=== PATIENT | female | born 1965 | race Caucasian/White ===

== ENCOUNTER → 2021-11-12 | Outpatient (CLI) | payer BC, SELFPAY ==
[2021-11-12 12:21] LABS: T4 Free Direct 1.11 ng/dL (0.76-1.46); Thyroid Stim Hormone (TSH) 0.78 uIU/mL (0.358-3.74)
[2021-11-12 12:26] LABS: Vitamin B12 536 pg/mL (211-911); Vitamin D,25 Hydroxy 75.3 ng/mL
[2021-11-12 14:04] LABS: Hemoglobin A1c 5.6 % (3.8-5.6)
== END | disposition home or self-care (01) ==
LOC: BIMLAB 09:04
PROVIDERS: PCP Nurse Practitioner Family; Referring Provider Internal Medicine Endocrinology, Diabetes & Metabolism; Visit Provider Internal Medicine Endocrinology, Diabetes & Metabolism
DX: E03.8 Other specified hypothyroidism (principal); E06.3 Autoimmune thyroiditis; R73.09 Other abnormal glucose; E55.9 Vitamin D deficiency, unspecified
CPT/HCPCS: 36415; 82306; 82607; 83036; 84439; 84443

== ENCOUNTER → 2023-06-17 | Outpatient (CLI) | payer BC, SELFPAY ==
--- NOTE | 2023-06-17 18:02 | US_ITS ---
STUDY: THYROID ULTRASOUND REASON FOR EXAM: Female, 57 years old. TR nodules please TECHNIQUE: Ultrasound evaluation of the thyroid was performed with real-time and static ramirez-scale imaging. COMPARISON: None. FINDINGS: RIGHT LOBE: The right lobe of the thyroid gland measures 5.2 x 1.9 x 2.0 cm. There is a heterogeneous echotexture. There are 2 solid nodules in the right thyroid lobe. Nodule 1 measures 1.1 x 0.8 x 0.8 cm. This contains 2 small anechoic cysts. Nodule 2 measures 1.1 x 1.4 x 0.9 cm. It contains one small anechoic cyst. LEFT LOBE: The left lobe of the thyroid gland measures 4.4 x 1.8 x 1.6 cm. There is a heterogeneous echotexture. There is a solid nodule measuring 1.1 x 1.4 x 0.9 cm. It contains a small anechoic cyst. ISTHMUS: The isthmus measures 0.24 cm. US/Thyroid IMPRESSION: 1. 1.1 x 0.8 x 0.8 cm solid nodule with 2 small anechoic cysts in the right thyroid lobe. This nodule is mixed cystic and solid, hyperechoic or isoechoic, [id number], smoothly marginated and contains no echogenic foci. This nodule is not suspicious and no FNA or follow-up is necessary. 2. 1.1 x 1.4 x 0.9 cm solid nodule in the right thyroid lobe containing one small anechoic cyst. This nodule is not suspicious and no FNA or follow-up is necessary. 3. 1.1 x 1.4 x 0.9 cm solid nodule in the left thyroid lobe contains small anechoic cyst. This nodule is not suspicious and no FNA or follow-up is necessary. Electronically Signed: Sivakumar Purdy MD at 16:15 EST ,
--- OUTSIDE RECORDS SUMMARY | 2023-06-17 18:22 | XMS RPT_ITS | CCD ---
Author Name Unknown Address [address] [place] [address] Organization [facility] Care Team Providers Care Choir Leader Name Role Phone Unavailable Unavailable Unavailable SON HILARIO Unavailable Unavailabl Taty Hernandez Unavailable Stripe Marker, Donnamarie Unavailable Unavailable Stripe Marker Donnamarie Unavailable Unavailable Cristina Hilarioew A Unavailable Unavailable Son Hilario Unavailable Unavailable Taty Dubon Primary Care Provider Madelin Choe Unavailable Unavailable Unavailable Mago Soni Unavailable Unavailable Unavailable Taty Dubon MD Primary Care Provider TATY DUBON Admitting Unavailable TATY DUBON Attending Unavailable TATY DUBON Referring Unavailable KASSANDRA SWANN Primary Care Unavailable Taty Dubon MD Primary Care Provider [phone] Mago Soni NP Primary Care Provider Ms. Mago Soni Referring Unavailable Ms. Mago Soni Attending Unavailable Ms. Mago Soni Primary Care Unavailable MAGO SONI Primary Care Unavailable TATY DUBON Attending Unavailable Ms. Mago Soni Primary Care Unavailable Dr. Taty Dubon Attending Unavailab Ms. Mago Brunner Primary Care Unavailable Self, Referral Attending Unavailable Dr. Taty Dubon Referring Unavailab MAGO Brunner Attending Unavailable MAGO SONI Primary Care Unavailable Mago Soin CNP K Primary Care Provider BRANDON BANKS Attending Unavailable MAGO SONI Primary Care Unavailable MAGO SONI Primary Care Unavailable Zachariah LYMAN, Mago Fraire Primary Care Provider SARI DEL CASTILLO Referring Unavaila ble KARSON, SARI SHORE Admitting Unavaila ble ZACHARIAH, MAGO Fraire Primary Care Unavailable SARI DEL CASTILLO Attending Unavaila ble ZACHARIAH, MAGO Fraire Primary Care Unavailable SARI DEL CASTILLO Referring Unavaila ble SARI DEL CASTILLO Admitting Unavaila ble ZACHARIAH, MAGO Fraire Primary Care Unavailable SARI DEL CASTILLO Attending Unavaila ble ZACHARIAH, MAGO Fraire Primary Care Unavailable MAGO SONI Primary Care Unavailable SARI DEL CASTILLO Referring Unavaila ble KARSON, SARI SHORE Admitting Unavaila ble KAREL CLARK Attending Unavailable TATY DUBON Primary Care Unavailable MAGO SONI Primary Care Unavailable SARI DEL CASTILLO Attending Unavaila ble ZACHARIAH, MAGO Fraire Primary Care Unavailable SARI DEL CASTILLO Attending Unavaila MAGO Man Primary Care Unavailable SARI DEL CASTILLO Admitting Unavaila ble SARI DEL CASTILLO Referring Unavaila ble MAGO SONI Primary Care Unavailable SARI DEL CASTILLO Attending Unavaila ble Allergies Allergy Classification Reported Allergen(s) Allergy Type Date of Onset Reaction(s) Facility Unclassified (7 sources) Animal dander - Cats Allergy to substance (finding) Rhinitis [facility] Work Phone: Unclassified (9 sources) Poison Mandie; Translations: [POISON MANDIE] Allergy to substance (finding) 3 Rash [facility] Work Phone: Unclassified (7 sources) Poison Bloomer Allergy to substance (finding) Rash [facility] Work Phone: (16 sources) cat dander extract; Translations: [CAT DANDER] Drug Allergy 8 [facility] (14 sources) poison mandie extract; Translations: [POISON MANDIE EXTRACT] Drug Allergy 8 Rash [facility] (16 sources) POISON OAK EXTRACT; Translations: [POISON OAK EXTRACT] Propensity to adverse reactions to drug 8 Rash [facility] (4 sources) Cigarette Smoke; Translations: [CIGARETTE SMOKE] Propensity to adverse reactions 2 [facility] (4 sources) Perfume; Translations: [PERFUME] Propensity to adverse reactions 3 Nausea Only, Headache [facility] (1 source) VIT E-NONOXYNOL 9-ALOE VERA; Translations: [VIT E-NONOXYNOL 9-ALOE VERA] Propensity to adverse reactions to drug (disorder) 3 [facility] Three Repository Medications Current Medications Medication Drug Class(es) Dates Sig (Normalized) Sig (Original) B comp/E/folic/soy [id number] (ESTROPLUS EXTRA STRENGTH ORAL) (10 sources) B comp/E/folic/s oy [id number] (ESTROPLUS EXTRA STRENGTH ORAL) Indications: 2 times per week Take by mouth. 0 Active Completed/Discontinued Medications Medication Drug Class(es) Dates Sig (Normalized) Sig (Original) betamethasone 0.5 mg/ml / clotrimazole 10 mg/ml topical cream (7 sources) Azole Antifungal, Corticosteroid Start: 03-21-2020 Clotrimazole-Bet amethasone 1-0.05 % External Cream APPLY AND RUB IN A THIN FILM TO AFFECTED AREAS TWICE DAILY.(AM AND PM). Quantity: 1 Refills: 0 Ordered: 21-Mar-2020 Daija ALBARADON-BUSINESS PERFORMANCE SPECIALIST Madelin Start : 21-Mar-2020 Active Black Cohosh Extract (7 sources) Black Cohosh CAPS TAKE 1 CAPSULE DailyALL NATRUAL MULTI-SUPPLIMENT HERB Quantity: 0 Refills: 0 Ordered: 18-Dec-2020 DO Active Problems Active Problems Problem Classification Problem Date Documented Da te Episodic/Chronic Administrative/social admission (2 sources) Patient encounter status; Translations: [Other reasons for seeking consultation] Episodic Anxiety disorders (17 sources) Panic attack; Translations: [Generalized anxiety disorder] Onset: 12-15-2017 12-15-2017 Chronic Conditions associated with dizziness or vertigo (1 source) Dizziness; Translations: [Dizziness and giddiness] Episodic Diabetes mellitus without complication (9 sources) Prediabetes; Translations: [Other abnormal glucose] Onset: 01-14-2023 Episodic Disorders of lipid metabolism (7 sources) Hyperlipidemia; Translations: [Other and unspecified hyperlipidemia] Chronic Fracture of lower limb (11 sources) Closed fracture of lateral malleolus; Translations: [Displaced fracture of lateral malleolus of right fibula, subsequent encounter for closed fracture with routine healing] Onset: 02-18-2023 02-22-2023 Episodic Malaise and fatigue (7 sources) Fatigue; Translations: [Other malaise and fatigue] Episodic Mycoses (7 sources) Dermatophytosis; Translations: [Dermatophytosis of unspecified site] Episodic Nonmalignant breast conditions (11 sources) Breast lump; Translations: [Lump or mass in breast] Onset: 12-21-2022 Episodic Other connective tissue disease (1 source) Pain of bilateral upper limbs; Translations: [Pain in right arm] Episodic Other lower respiratory disease (6 sources) Snoring; Translations: [Other respiratory abnormalities] Episodic Other lower respiratory disease (4 sources) Gasping for breath; Translations: [Other respiratory abnormalities] Episodic Other non-traumatic joint disorders (2 sources) Pain in wrist; Translations: [Pain in joint, forearm] Episodic Other non-traumatic joint disorders (2 sources) Bilateral wrist pain; Translations: [Pain in right wrist] Episodic Other non-traumatic joint disorders (2 sources) Pain in right ankle and joints of right foot; Translations: [Pain in right ankle and joints of right foot] Onset: 03-28-2023 Episodic Other nutritional; endocrine; and metabolic disorders (2 sources) Body mass index 30+ - obesity; Translations: [Body Mass Index 32.0-32.9, adult] Chronic Residual codes; unclassified (6 sources) Daytime somnolence; Translations: [Hypersomnia, unspecified] Chronic Residual codes; unclassified (14 sources) Flushing; Translations: [Flushing] Episodic Residual codes; unclassified (7 sources) History of clinical finding in subject; Translations: [Other specified conditions influencing health status] Episodic Residual codes; unclassified (4 sources) Influenza vaccination declined; Translations: [Vaccination not carried out because of patient refusal] Episodic Past or Other Problems Problem Classification Problem Date Documented Da te Episodic/Chronic Medical examination/evaluation (2 sources) Encounter for general adult medical examination without abnormal findings; Translations: [Encounter for general adult medical examination without abnormal findings] Onset: 01-24-2017 Episodic Other connective tissue disease (2 sources) Pain in right arm; Translations: [Pain in right arm] Onset: 07-07-2022 Episodic Other connective tissue disease (2 sources) Pain in left arm; Translations: [Pain in left arm] Onset: 07-07-2022 Episodic Other screening for suspected conditions (not mental disorders or infectious disease) (20 sources) Mammography abnormal; Translations: [Abnormal mammogram, unspecified] Onset: 12-15-2017 12-15-2017 Episodic Residual codes; unclassified (15 sources) Menopause present; Translations: [Symptomatic menopausal or female climacteric states] Onset: 12-15-2017 12-15-2017 Episodic Results Test Name Value Interpretation Reference Range Facil ity Vital Signs Date Time Vital Sign Value Performing Clinician Facility 04-12-2023 15:06-0500 Body temperature 97.9 [degF] Sari Del Castillo DPM Work Phone: [facility] 04-12-2023 15:06-0500 Diastolic blood pressure 61 mm[Hg] Sari Del Castillo DPM Work Phone: [facility] 04-12-2023 15:06-0500 Heart rate 67 /min Sari Del Castillo DPM Work Phone: [facility] 04-12-2023 15:06-0500 Systolic blood pressure 125 mm[Hg] Sari Del Castillo DPM Work Phone: [facility] 03-28-2023 14:25-0500 Body temperature 98.01 [degF] Sari Del Castillo DPM Work Phone: [facility] 03-28-2023 14:25-0500 Diastolic blood pressure 77 mm[Hg] Sari Del Castillo DPM Work Phone: [facility] 03-28-2023 14:25-0500 Heart rate 75 /min Sari Del Castillo DPM Work Phone: [facility] 03-28-2023 14:25-0500 Systolic blood pressure 120 mm[Hg] Sari Del Castillo DPM Work Phone: [facility] 03-14-2023 16:02-0500 Body temperature 98.4 [degF] Sari Del Castillo DPM Work Phone: [facility] 03-14-2023 16:02-0500 Diastolic blood pressure 86 mm[Hg] Sari Del Castillo DPM Work Phone: [facility] 03-14-2023 16:02-0500 Heart rate 79 /min Sari Del Castillo DPM Work Phone: [facility] 03-14-2023 16:02-0500 Systolic blood pressure 137 mm[Hg] Sari Del Castillo DPM Work Phone: [facility] 02-22-2023 15:30-0400 Body temperature 98.29 [degF] Sari Del Castillo DPM Work Phone: [facility] 02-22-2023 15:30-0400 Diastolic blood pressure 73 mm[Hg] Sari Fostermerman DPM Work Phone: [facility] 02-22-2023 15:30-0400 Heart rate 101 /min Sari Del Castillo DPM Work Phone: [facility] 02-22-2023 15:30-0400 Systolic blood pressure 117 mm[Hg] Sari Del Castillo DPM Work Phone: [facility] 08-12-2022 14:29-0400 Body height 161.3 cm Taty Dubon MD Work Phone: [facility] 08-12-2022 14:29-0400 Body mass index (BMI) [Ratio] 32.82 kg/m2 Taty Dubon MD Work Phone: [facility] 08-12-2022 14:29-0400 Body weight 85.37 kg Taty Dubon MD Work Phone: [facility] 08-12-2022 14:29-0400 Diastolic blood pressure 81 mm[Hg] Taty Dubon MD Work Phone: [facility] 08-12-2022 14:29-0400 Heart rate 74 /min Taty Dubon MD Work Phone: [facility] 08-12-2022 14:29-0400 Systolic blood pressure 130 mm[Hg] Taty Dubon MD Work Phone: [facility] 05-06-2022 10:55-0500 Body height 161.3 cm Karel Clark MD Work Phone: [facility] 05-06-2022 10:55-0500 Body mass index (BMI) [Ratio] 32.26 kg/m2 Karel Clark MD Work Phone: [facility] 05-06-2022 10:55-0500 Body weight 83.92 kg Karel Clark MD Work Phone: [facility] 05-06-2022 10:55-0500 Diastolic blood pressure 76 mm[Hg] Karel Clark MD Work Phone: [facility] 05-06-2022 10:55-0500 Heart rate 66 /min Karel Clark MD Work Phone: [facility] 05-06-2022 10:55-0500 Respiratory rate 16 /min Karel Clark MD Work Phone: [facility] 05-06-2022 10:55-0500 SaO2% (BldA) [Mass fraction] 99 % Karel Clark MD Work Phone: [facility] 05-06-2022 10:55-0500 Systolic blood pressure 112 mm[Hg] Karel Clark MD Work Phone: [facility] 01-01-2022 15:22-0400 Body height 160.02 cm Mago Soni Work Phone: [facility] 205 DO Work Phone: 01-01-2022 15:22-0400 Body mass index (BMI) [Ratio] 32.51 kg/m2 Mago Soni Work Phone: [facility] 205 DO Work Phone: 01-01-2022 15:22-0400 Body surface area Derived from formula 1.86 m2 Mago Soni Work Phone: [facility] 205 DO Work Phone: 01-01-2022 15:22-0400 Body weight 83.24 kg Mago Soni Work Phone: [facility] 205 DO Work Phone: 01-01-2022 15:22-0400 Diastolic blood pressure 68 mm[Hg] Mago Soni Work Phone: [facility] 205 DO Work Phone: 01-01-2022 15:22-0400 Heart rate 76 /min Mago Soni Work Phone: [facility] 205 DO Work Phone: 01-01-2022 15:22-0400 SaO2% (BldA) [Mass fraction] 99 % Mago Soni Work Phone: [facility] 205 DO Work Phone: 01-01-2022 15:22-0400 Systolic blood pressure 128 mm[Hg] Mago Soni Work Phone: [facility] 205 DO Work Phone: 01-22-2021 14:44-0400 Body height 160.02 cm Madelin Choe Work Phone: [facility] Work Phone: 01-22-2021 14:44-0400 Body mass index (BMI) [Ratio] 33.66 kg/m2 Madelin Choe Work Phone: [facility] Work Phone: 01-22-2021 14:44-0400 Body surface area Derived from formula 1.89 m2 Madelin Choe Work Phone: [facility] Work Phone: 01-22-2021 14:44-0400 Body weight 86.18 kg Madelin D Choe Work Phone: [facility] Work Phone: 01-22-2021 14:44-0400 Diastolic blood pressure 78 mm[Hg] Madelin D Choe Work Phone: [facility] Work Phone: 01-22-2021 14:44-0400 Heart rate 68 /min Madelin D Choe Work Phone: [facility] Work Phone: 01-22-2021 14:44-0400 Systolic blood pressure 128 mm[Hg] Madelin D Choe Work Phone: [facility] Work Phone: 12-18-2020 14:11-0400 Body height 160.02 cm Madelin D Choe Work Phone: [facility] Work Phone: 12-18-2020 14:11-0400 Body mass index (BMI) [Ratio] 34.37 kg/m2 Madelin D Choe Work Phone: [facility] Work Phone: 12-18-2020 14:11-0400 Body surface area Derived from formula 1.91 m2 Madelin D Choe Work Phone: [facility] Work Phone: 12-18-2020 14:11-0400 Body weight 87.99 kg Madelin D Choe Work Phone: [facility] Work Phone: 12-18-2020 14:11-0400 Diastolic blood pressure 74 mm[Hg] Madelin D Choe Work Phone: [facility] Work Phone: 12-18-2020 14:11-0400 Heart rate 76 /min Madelin Sara AlvarezChoe Work Phone: [facility] Work Phone: 12-18-2020 14:11-0400 Systolic blood pressure 122 mm[Hg] Madelin Ruiz Choe Work Phone: [facility] Work Phone: 01-19-2018 12:59-0400 BMI (Body Mass Index) 31.21 kg/m2 [facility] 01-19-2018 12:59-0400 Body Temperature 98.01 [degF] [facility] 01-19-2018 12:59-0400 BP Diastolic 69 mm[Hg] [facility] 01-19-2018 12:59-0400 BP Systolic 106 mm[Hg] [facility] 01-19-2018 12:59-0400 Height 161.3 cm [facility] 01-19-2018 12:59-0400 Pulse (Heart Rate) 74 /min [facility] 01-19-2018 12:59-0400 Respiratory Rate 14 /min [facility] 01-19-2018 12:59-0400 Weight 81.19 kg [facility] Encounters Encounter Date Encounter Type Care Provider Facility Start: 06-02-2023 End: 06-06-2023 ambulatory MAGO SONI [facility] Start: 04-12-2023 End: 04-16-2023 ambulatory SARI DEL CASTILLO [facility] Start: 04-12-2023 End: 04-12-2023 Office outpatient visit 10 minutes Sari Del Castillo DPM Work Phone: [facility] Procedures Date Procedure Procedure Detail Performing Clinician Start: 04-12-2023 Radex ankle complete minimum 3 views Sari Del Castillo DPM Work Phone: Start: 12-13-2022 Mammography Sari campa DPM Work Phone: Start: 08-12-2022 Microscopic observat ion [Identifier] in Cervix by Cyto stain Sari Del Castillo DPM Work Phone: Start: 08-06-2021 Cytp cerv/vag auto t hin layer prep mnl screen Taty Dubon MD Work Phone: Start: 11-01-2017 Cytp cerv/vag auto t hin layer prep mnl screen Taty Dubon MD Work Phone: Start: 05-10-2012 Mammography Bri P isabelalucinda Start: 11-25-1998 Microscopic observat ion [Identifier] in Cervix by Cyto stain Brinieves Burciagaanzana Extraction of wisdom tooth A my D Choe Work Phone: Plan of Treatment Date Care Activity Detail Author Start: 08-13-2027 Screening for malignant neoplasm of cervix Pap Smear [facility] Start: 08-06-2024 Screening for malignant neoplasm of cervix Cervical Cancer Screening: Pap Smear [facility] Start: 08-03-2024 Screening for malignant neoplasm of colon [facility] Start: 12-14-2023 Screening for malignant neoplasm of breast Mammogram [facility] Start: 08-24-2023 End: 08-24-2023 Patient encounter procedure 08/24/2023 Office Visit Obstetrics and Gynecology Taty Dubon MD [address] [address] [place] Start: 08-13-2023 History and physical examination, annual for health maintenance Wellness Visit [facility] Start: 05-12-2023 End: 05-12-2023 Patient encounter procedure 05/12/2023 4:00 PM EST Office Visit [facility] Physician [facility] [address] [place] [id number] Sari Del Castillo DPM [address] [place] [address] [facility] Start: 04-12-2023 End: 04-12-2023 Patient encounter procedure 04/12/2023 3:15 PM EST Office Visit [facility] Physician [facility] [address] [place] [address] Sari Del Castillo, JAMEL [address] [place] [address] [facility] Physician [facility] Start: 03-28-2023 End: 03-28-2023 Patient encounter procedure 03/28/2023 2:15 PM EST Office Visit [facility] Physician [facility] [address] [place] [address] Sari Del Castillo, JAMEL [address] [place] [address] [facility] Physician [facility] Start: 03-14-2023 End: 03-14-2023 Patient encounter procedure 03/14/2023 3:45 PM EST Office Visit [facility] Physician [facility] [address] [place] [address] Sari Del Castillo, JAMEL [address] [place] [address] [facility] Physician [facility] Start: 01-07-2023 Influenza vaccination [facility] Start: 12-31-2022 PHYSICAL, Provider: Mago Soin, Status: Pen, Time: 2:20 PM PHYSICAL, Provider: Mago Soni, Status: Pen, Time: 2:20 PM [facility] 205 DO Work Phone: Start: 07-07-2022 End: 07-07-2022 Patient encounter procedure 07/07/2022 Procedure visit Neurology Karel Clark MD [facility] Barbara Yates [address] [address] [facility] Start: 05-07-2022 Adolescent depression screening assessment Depression Screening [facility] Start: 05-07-2022 Hepatitis C screening Hepatitis C Screening [facility] Start: 05-07-2022 HIV screening HIV Screening [facility] Start: 05-07-2022 Lipid panel Cholesterol Screening (Lipid Panel) [facility] Start: 05-07-2022 Screening for malignant neoplasm of breast Breast Cancer Screening [facility] Start: 05-07-2022 Screening for malignant neoplasm of colon Colorectal Cancer Screening: Colonoscopy [facility] Start: 05-07-2022 Social Influencers of Health Screening Social Influencers of Health Screening [facility] Start: 01-07-2022 Influenza vaccination Sequential Influenza Vaccine (#1) [facility] Start: 06-23-2021 FUV, Provider: Madelin Choe, Status: Pen, Time: 3:00 PM FUV, Provider: Madelin Choe, Status: Pen, Time: 3:00 PM [facility] Work Phone: Start: 01-08-2021 FUV, Provider: Madelin Choe, Status: Pen, Time: 2:40 PM FUV, Provider: Madelin Choe, Status: Pen, Time: 2:40 PM [facility] Work Phone: Start: 01-08-2020 Influenza vaccination given Sequential Influenza Vaccine (#1) [facility] Start: 02-02-2018 End: 02-02-2018 Ambulatory 02/02/2018 Office Visit Primary Care Juani Garcia DO [address] [place] [address] [phone] [facility] Start: 02-02-2018 End: 02-02-2018 Ambulatory 02/02/2018 Scanned Document General Surgery Kristin Briggs MD [facility] [address] [place] [address] [phone] [facility] Start: 01-07-2018 Influenza vaccination SEQUENTIAL INFLUENZA VACCINE (#1) [facility] Start: 10-27-2015 Administration of herpes zoster vaccine Zoster Vaccines (1 of 2) [facility] Start: 10-27-2015 Screening for malignant neoplasm of colon [facility] Start: 10-27-2015 Zoster Vaccines (1 of 2) Zoster Vaccines (1 of 2) [facility] Start: 05-10-2013 Screening for malignant neoplasm of breast Mammogram [facility] Start: 05-10-2013 Screening mammography Mammogram [facility] Start: 11-25-2001 Screening for malignant neoplasm of cervix PAP SMEAR [facility] Start: 1984 DTaP,Tdap,and Td Vaccines (1 - Tdap) DTaP,Tdap,and Td Vaccines (1 - Tdap) [facility] Start: 10-27-1983 Hepatitis C antibody, confirmatory test Hepatitis C Screening [facility] Start: 10-27-1983 Hepatitis C screening Hepatitis C Screening [facility] Start: 1981 COVID-19 Vaccine (1 of 2) COVID-19 Vaccine (1 of 2) [facility] Start: 1980 HIV screening HIV Screening [facility] Start: 1977 Adolescent depression screening assessment Depression Screening (PHQ9) [facility] Start: 1977 Depression screening using PHQ-9 (Patient Health Questionnaire 9) score Depression Screening (PHQ-2/9) [facility] Start: 1968 History and physical examination, annual for health maintenance Wellness Visit [facility] Start: 04-27-1966 COVID-19 Vaccine (#1) COVID-19 Vaccine (#1) [facility] Start: 1965 Hepatitis B Vaccines (1 of 3 - 3-dose series) Hepatitis B Vaccines (1 of 3 - 3-dose series) [facility] Start: 1965 Screening colonoscopy COLONOSCOPY [facility] Start: 1965 Screening for malignant neoplasm of colon [facility] Start: 1965 Tetanus vaccination [facility] Cytology report of Cervical or vaginal smear or scraping Cyto stain.thin prep Pap smear Pathology and Cytology Routine Encounter for annual routine gynecological examination 08/12/2022 3:13 PM EDT [facility] Work Phone: End: 05-07-2023 Electromyography EMG: Neurology Routine Pain in both wrists 1 Occurrences starting 05/06/2022 until 05/07/2023 [facility] Work Phone: Payers Date Payer Category Payer Blue [employer] Blue Shield [place] [id number] 2021-Present [address] [place] [address] [id number] 2021 Unknown 2020 Unknown [id number] 2017 Unknown [id number] 2017 Unknown [facility] PLAN - PREFERRED [id number] 2017-Present [id number] 1965 Unknown [id number] [id number]. 2.903 1965 Unknown [id number] [id number]. 2.356 1965 Unknown [id number] [id number]. 2.1143 1965 Unknown [id number] [id number]. 2.1069 1965 Unknown [id number] [id number]. 2.1069 1965 Unknown [id number] [id number]. 2.1244 1965 Unknown [id number] [id number]. 2.902 1965 Unknown [id number] 2.16.840.1.230349.3.579. 2.902 1965 Unknown [id number] 2.16.840.1.086444.3.579. 2.903 1965 Unknown [id number] [id number]. 2.903 1965 Unknown [id number] 1965 Unknown [id number] [id number] 1965 Unknown [id number] [id number] 1965 Unknown [id number] 2. 1965 Unknown [id number] [id number] 1965 Unknown [id number]. 2. 1965 Unknown [id number] [id number] 1965 Unknown [id number] 2. Unknown [id number] Social History Date Type Detail Facility Start: 01-25-2017 End: 06-21-2017 Tobacco smoking status ILIS Unknown if ever smoked [facility] Work Phone: Start: 1965 Sex Assigned At Not on file [facility] Work Phone: Start: 01-19-2018 End: 05-06-2022 Tobacco smoking status NHIS Never smoker [facility] Start: 01-19-2018 End: 05-06-2022 Tobacco use and exposure Never used [facility] Start: 01-19-2018 End: 04-12-2023 Alcohol intake Current drinker of alcohol (finding) [facility] Start: 01-19-2018 Alcohol Comment rarely [facility] Start: 02-18-2023 End: 03-28-2023 Non-smoker Non-smoker [facility] Work Phone: Start: 04-26-2022 End: 08-12-2022 Exposure to SARS-CoV-2 (event) Not sure [facility] Start: 02-18-2023 End: 03-28-2023 Tobacco use panel [facility] Start: 01-19-2018 Gender identity Identifies as female gender (finding) [facility] Start: 01-19-2018 Sexual orientation Heterosexual (finding) [facility] Clinical Notes 05-06-2022 to 04-12-2023 Sari Del Castillo DPM - 04/12/2023 5:18 PM Sari Lin DPM - 03/28/2023 2:52 PM Sari Lin DPM - 03/14/2023 5:13 PM ESTPatient Instructions Note Date & Type Note Facility 04-12-2023 History of Presen t illness Narrative Patient: Pam Hamilton Date of : 1965 (57 y.o.) PCP: Mago Soni CNP Procedures ASSESSMENT/PLAN: Pam Hamilton 57 y.o. female with history of distal fibular avulsion fracture of the right ankle almost completely healed. Plan: I prescribed dispensed 1 stability ankle brace that is to be worn with tennis shoes. Patient was told she no longer needs to use the cam walker boot. Patient was given instructions on home physical therapy exercises. Patient felt she can move forward with them. Patient to reappoint in 1 month Assessment & plan notes cannot be loaded without a specified hospital service. SUBJECTIVE: History Since Last Visit: Patient 57-year-old female who follows up for a distal fibular avulsion fracture of the right ankle that occurred approximately 2 months ago. Patient has since healed the fracture unremarkable according to x-rays today. Patient has been doing well with her boot. Review of Systems: OBJECTIVE: Physical Examination: Integument-the ecchymosis is fully resolved on the lateral side of the right ankle. Neuro-intact right foot Musculoskeletal-patient had minimal swelling and no pain when I palpated the distal fibula avulsion fracture that healed on the right ankle. Patient can dorsiflex and plantarflex the right ankle without difficulty. Patient had some mild swelling over the deltoid ligament of the right ankle. Vascular-DP and PT pulses are palpable right foot. BP 125/61 (BP Location: Right arm, Patient Position: Sitting, BP Cuff Size: Adult) Pulse 67 Temp 97.9 F (36.6 C) (Infrared) Laboratory and Additional Data Reviewed: Reviewed:[id number]} XR Ankle Right 3+ Views (Standard) X-rays 3 views right ankle: The distal fibular avulsion fracture is almost completely healed. There is some calcification of the deltoid ligament noted. No degenerative arthritis noted. documented in this encounter [facility] 03-28-2023 History of Presen t illness Narrative Patient: Pam Hamilton Date of : 1965 (57 y.o.) PCP: Mago Soni, BUSINESS PERFORMANCE SPECIALIST Procedures ASSESSMENT/PLAN: Pam Hamilton 57 y.o. female with history of distal fibular avulsion fracture fragment of the right ankle 85-90 % healed. Plan: Patient was told she can try ambulating with her cam walker boot and Deejay bandage. Patient is told to bring her shoe next time if is doing well we will get her into an ankle brace. Reappoint in 2 weeks for x-rays of the right ankle. Assessment & plan notes cannot be loaded without a specified hospital service. SUBJECTIVE: History Since Last Visit: Patient 57-year-old female who is status post distal fibular avulsion fracture of the right ankle x4 weeks. Patient relates has been doing pretty well and she started to walk with her cam walker boot. Review of Systems: OBJECTIVE: Physical Examination: Integument-the ecchymosis is has resolved on the lateral side of the right ankle. Neuro-intact right foot Musculoskeletal-patient has decreased pain and swelling over the distal fibular avulsion fracture fragment on the right ankle. No pain with ankle joint range of motion. No pain behind the right calf. Vascular-DP PT pulses are palpable in the right foot. BP 120/77 (BP Location: Right arm, Patient Position: Sitting, BP Cuff Size: Adult) Pulse 75 Temp 98 F (36.7 C) (Infrared) Laboratory and Additional Data Reviewed: Reviewed:[id number]} XR Ankle Right 3+ Views (Standard) X-rays 3 views right ankle: The radiolucency in the distal fibular fracture is much improved. Patient appears to be about 75 to 80% healed. There is old calcification of the deltoid ligament. documented in this encounter [facility] 03-14-2023 History of Presen t illness Narrative Patient: Pam Hamilton Date of : 1965 (57 y.o.) PCP: Mago Soni, BUSINESS PERFORMANCE SPECIALIST Procedures ASSESSMENT/PLAN: Pam Hamilton 57 y.o. female with history of right distal fibular ankle fracture about 75% healed. Plan: Patient was told to start doing passive and active range of motion exercises. Patient was encouraged to start walking with the cam walker boot using crutches for assistance. Patient to return in 2 weeks for x-rays and if doing well we will move forward with getting your ankle brace and tennis shoe. Assessment & plan notes cannot be loaded without a specified hospital service. SUBJECTIVE: History Since Last Visit: Patient a 57-year-old female with a right distal fibular ankle fracture in which she has been using a knee scooter and crutches. Patient's been on sitdown duty at work. Patient like the ankle is feeling better. Review of Systems: OBJECTIVE: Physical Examination: Integument-skin is warm dry and supple on the right lower extremity. The ecchymosis and swelling are much improved. Neuro-intact right foot Musculoskeletal-patient has minimal swelling and little pain over the distal fibula right ankle. There is no pain over the distal deltoid ligament of the right ankle. Patient no pain with palpating the calf. Patient can dorsiflex and plantarflex the right ankle but it was stiff. Vascular-DP PT pulse are palpable right foot. BP 137/86 (BP Location: Right arm, Patient Position: Sitting, BP Cuff Size: Adult) Pulse 79 Temp 98.4 F (36.9 C) (Infrared) Laboratory and Additional Data Reviewed: Reviewed:[id number]} XR Ankle Right 3+ Views (Standard) X-rays 3 views right ankle: The radiolucency in the distal fibular fracture is much improved. Patient appears to be about 75 to 80% healed. There is old calcification of the deltoid ligament. documented in this encounter [facility] 02-22-2023 History of Presen t illness Narrative Patient Name: Pam Hamilton MR #: [id number] : 1965 Gender: female. Date of Consultation: 02/22/2023. Author: JUDI Marshall Physicians: Mago Soni, BUSINESS PERFORMANCE SPECIALIST (Family); No ref. provider found (Referring) History of Present Illness: Pam Hamilton is a 57 y.o. female who follows up with avulsion fracture of the distal fibula of the right ankle. Patient relates she had tripped and injured the ankle last [place] and was placed in an ankle brace. Patient states that still pretty sore and she cannot bear any weight on the foot. Patient is using crutches for assistance. Assessment and Plan: 1. 1. Closed avulsion fracture of lateral malleolus of right fibula with routine healing, subsequent encounter Plan: Patient was seen and evaluated. I discussed the findings with the patient. Patient was given opportunity to ask questions. Patient elects to have the following treatment as follows: I prescribed and dispensed 1 cam walker boot to assist in ambulation of the right foot. Patient had an Deejay bandage applied to the right foot and ankle. Prescribed Motrin to take every 8 hours. Patient was told she can do sitdown duty at work with the book mobile if not she was off. Reappoint in 2 weeks for x-rays of the right ankle. Lower Extremity: Integumentary: There is ecchymosis on the lateral side of the right ankle. Musculoskeletal: Patient has pain on palpation of the distal fibula of the right ankle. Patient no pain over the deltoid ligament no pain over the tarsometatarsal joint or subtalar joint. No pain over the distal tib-fib syndesmosis. No pain behind the right calf. Neurological: sensation intact Vascular: DP PT pulses are for the right foot. * No LDAs found * BP 117/73 (BP Location: Right arm, Patient Position: Sitting, BP Cuff Size: Adult) Pulse (!) 101 Temp 98.3 F (36.8 C) (Infrared) Allergy Information: I have reviewed the patient's allergies. Cat dander, Poison mandie extract, and Poison oak extract Home Medications: Current Outpatient Medications Medication Sig Dispense Refill B comp/E/folic/soy [id number] (ESTROPLUS EXTRA STRENGTH ORAL) Take by mouth. cholecalciferol, vitamin D3, (VITAMIN D3 ORAL) Take by mouth 2000 ml daily . cyanocobalamin (B-12) 100 MCG tablet Take 1 (one) tablet (100 mcg total) by mouth daily . diphenhydrAMINE (BENADRYL) 25 mg tablet Take 1 (one) tablet (25 mg total) by mouth nightly as needed for sleep . ibuprofen (ADVIL,MOTRIN) 400 MG tablet Take 1 (one) tablet (400 mg total) by mouth every 6 (six) hours as needed for pain . levothyroxine (SYNTHROID, LEVOTHROID) 100 MCG tablet Take 1 (one) tablet (100 mcg total) by mouth daily . LYSINE ORAL Take by mouth daily. MELATONIN ORAL Take 4 mg by mouth at bedtime 4 mg at night . multivitamin (THERAGRAN) per tablet Take 1 (one) tablet by mouth daily . omega-3 fatty acids-fish oil 340-1,000 mg cap Take 1 (one) capsule by mouth daily . PROGESTERONE IN OIL IM Inject into the shoulder, thigh, or buttocks daily. ibuprofen (ADVIL,MOTRIN) 800 MG tablet Take 1 (one) tablet (800 mg total) by mouth every 8 (eight) hours as needed for pain . 30 tablet 1 No current facility-administered medications for this visit. Review of Systems: The following system(s) were reviewed and pertinent findings noted: Pertinent positives and negatives as mentioned above, otherwise full review of systems is negative unless mentioned below: Patient currently denies Nausea/Vomiting/Fever/Chills/Shortnes s of Breath/Chest Pain. Medical History: Past Medical History: Diagnosis Date Disease of thyroid gland Migraine Jessica-menopausal hot flashes, difficulty sleeping . Surgical History: Past Surgical History: Procedure Laterality Date WISDOM TOOTH EXTRACTION age 18 . Social History: Social History Socioeconomic History Marital status: Tobacco Use Smoking status: Never Smokeless tobacco: Never Vaping Use Vaping Use: Never used Substance and Sexual Activity Alcohol use: Yes Comment: rarely Drug use: No Sexual activity: Yes Partners: Male control/protection: Condom Family History: Family History Problem Relation Age of Onset Uterine cancer Mother Alzheimer's disease Father Lymphoma Maternal Grandfather Electronically signed by the above physician 02/22/23 documented in this encounter [facility] 08-12-2022 History of Presen t illness Narrative Pt here for annual exam No problems or concerns Pt sees rug cleaner hand for thyroid problems Annual Exam-Postmenopausal: Patient presents for annual exam. The patient has no complaints today. The patient is sexually active. last pap: was normal. The patient is not taking hormone replacement therapy. Patient denies post-menopausal vaginal bleeding. 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 No pertinent surgical history. Review of Systems Constitutional: Negative. HENT: Negative. Eyes: Negative. Respiratory: Negative. Cardiovascular: Negative. Gastrointestinal: Negative. Endocrine: Negative. Genitourinary: Negative. Musculoskeletal: Negative. Skin: Negative. Breast: negative. Allergic/Immunologic: Negative. Neurological: Negative. Hematological: Negative. Psychiatric/Behavioral: Negative. Physical Exam Constitutional: Appearance: Normal appearance. She is obese. Genitourinary: Vulva and urethral meatus normal. Right Labia: No lesions. Left Labia: No lesions. No vaginal discharge or tenderness. Right Adnexa: not tender and no mass present. Left Adnexa: not tender and no mass present. No cervical discharge or lesion. Uterus is not enlarged or tender. No urethral tenderness present. Bladder is not tender. Pelvic exam was performed with patient in the lithotomy position. Breasts: Right: Normal. Left: Normal. HENT: Head: Normocephalic and atraumatic. Eyes: Extraocular Movements: Extraocular movements intact. Cardiovascular: Rate and Rhythm: Normal rate and regular rhythm. Pulmonary: Effort: Pulmonary effort is normal. No respiratory distress. Abdominal: General: There is no distension. Palpations: Abdomen is soft. Tenderness: There is no abdominal tenderness. There is no right CVA tenderness, left CVA tenderness or guarding. Musculoskeletal: Right lower leg: No edema. Left lower leg: No edema. Neurological: Mental Status: She is alert and oriented to person, place, and time. Psychiatric: Mood and Affect: Mood normal. Behavior: Behavior normal. Vitals reviewed. Assessment/Plan: Pt is a 56 y.o. who presents to the office for annual exam. 1. Encounter for annual routine gynecological examination -- pap with HPV collected and sent, await results -- reviewed calcium and Vit D -- diet and exercise reviewed -- monthly SBE and breast self awareness reviewed -- Up to Date with mammogram -- Up to Date with colonoscopy -- Not Due with DEXA -- precautions discussed -- RTO one year annual documented in this encounter [facility] 07-07-2022 History of Presen t illness Narrative Images from the original note were not included. [facility] [address] [facility] [address] [place] [address] Nerve Conduction & EMG Report Patient: Pam Hamilton Sex: Female Date of : 1965 Visit Date: 07/07/2022 10:11 AM Age: 56 Years Examining MD: Karel Clark MD Referred by: Dr. Dubon Temperature: 32.4 Current Height: 5 feet 4 inch Referred for: BUE numbness more on the right side. + neck pain. Plan: This study is design to evaluate for entrapment neuropathy, median or ulnar neuropathy, radiculopathy, or brachial plexopathy. Procedure indication, side effects, complications, risk and alternatives were explain. Patient agreed to proceed with verbal consent obtain. Patient was instructed to clean the puncture site with soap and water and put some ice pack for bruising. Impression: This is a normal EMG. There is NO clear electrodiagnostic evidence of a bilateral cervical radiculopathy, brachial plexopathy, entrapment neuropathy, median or ulnar neuropathy at this time. EMG Summary: The bilateral median and ulnar motor and sensory nerve conduction studies were normal. The bilateral radial sensory nerve conduction studies were also normal. Needle EMG of the tested muscle showed no abnormal spontaneous activity. Normal motor unit action potentials and recruitment patterns were seen. Karel Clark MD Diplomate, ABPN, NBPAS Clinical Neurophysiology, Neurology, Vascular Neurology and Sleep Medicine [facility] [place] [phone] Motor NCS Nerve / Sites Muscle Latency Amplitude Distance Velocity ms mV cm m/s R Median - APB Wrist APB 4.29 10.0 7 Elbow APB 7.83 7.4 20.5 57.9 L Median - APB Wrist APB 3.44 11.8 7 Elbow APB 7.10 11.8 20 54.5 R Ulnar - ADM Wrist ADM 3.17 10.2 6.5 B.Elbow ADM 6.73 8.5 21 58.9 A.Elbow ADM 8.60 9.3 10 53.3 L Ulnar - ADM Wrist ADM 2.60 9.3 6.5 B.Elbow ADM 5.90 9.0 20 60.8 A.Elbow ADM 7.65 8.9 10 57.1 Sensory NCS Nerve / Sites Peak Amp Amp.2-3 Distance Velocity ms V V cm m/s R Median - Digit II Wrist 3.50 37.7 63.3 13 51 L Median - Digit II Wrist 3.10 35.8 48.3 13 52 R Ulnar - Digit V Wrist 2.63 41.7 89.7 11 62 L Ulnar - Digit V Wrist 2.48 31.0 49.0 11 58 R Radial - Snuff Forearm 2.27 27.8 31.1 10 58 L Radial - Snuff Forearm 1.67 24.6 18.0 10 87 EMG Summary Table Spontaneous Activity Amplitude Duration Recruitment Polyphasia Comment Muscle Ins Act Fib PSW Fasc - - - - - L. Cervical paraspinals Normal 0 0 0 Normal Normal Normal Normal Normal L. Deltoid Normal 0 0 0 Normal Normal Normal Normal Normal L. Triceps brachii Normal 0 0 0 Normal Normal Normal Normal Normal L. Biceps brachii Normal 0 0 0 Normal Normal Normal Normal Normal L. Pronator teres Normal 0 0 0 Normal Normal Normal Normal Normal L. Extensor digitorum communis Normal 0 0 0 Normal Normal Normal Normal Normal L. First dorsal interosseous Normal 0 0 0 Normal Normal Normal Normal Normal L. Abductor pollicis brevis Normal 0 0 0 Normal Normal Normal Normal Normal R. Cervical paraspinals Normal 0 0 0 Normal Normal Normal Normal Normal R. Deltoid Normal 0 0 0 Normal Normal Normal Normal Normal R. Triceps brachii Normal 0 0 0 Normal Normal Normal Normal Normal R. Biceps brachii Normal 0 0 0 Normal Normal Normal Normal Normal R. Pronator teres Normal 0 0 0 Normal Normal Normal Normal Normal R. Extensor digitorum communis Normal 0 0 0 Normal Normal Normal Normal Normal R. First dorsal interosseous Normal 0 0 0 Normal Normal Normal Normal Normal R. Abductor pollicis brevis Normal 0 0 0 Normal Normal Normal Normal Normal documented in this encounter [facility] 05-06-2022 Instructions Karel Clark MD - 05/06/2022 11:13 AM EST We will schedule an EMG. May wear wrist splint as needed. May take but limit use of anti-inflammatory agent like ibuprofen or Aleve. documented in this encounter [facility] 05-06-2022 History of Presen t illness Narrative Neurology Outpatient Consult [facility] [address] [place] [address] (phone)/[phone] (fax) Patient: Pam Hamilton Date of : 1965 Primary Care Provider: Taty Dubon MD Assessment/Plan: Six months of intermittent wrist pain worse on the right than the left associated with activity. Consider whether she has tenosynovitis. Differential diagnosis include entrapment neuropathy at the wrist. We will schedule her for EMG. She may use [id number] anti-inflammatory agent as needed. May wear wrist splint as needed to help with her symptoms. Labs/Imaging/Ancillary test: Hemoglobin A1c is 5.5. Impression: Bilateral wrist pain Sonja's thyroiditis Suggestion: We will schedule an EMG. May wear wrist splint as needed. May take but limit use of anti-inflammatory agent like ibuprofen or Aleve. Diagnostic impression, plans, and suggestions were explained and discussed. Records from the referring physician were reviewed. Clinical imaging study/ labs/medical tests were ordered/reviewed. Indications, risk, complications, side effects and alternatives of medications/therapeutics were explained and discussed. Please monitor closely for any untoward side effects or complications of medications. Questions and concerns were addressed. Please call or contact us for any problems. This note was created in part using a speech-recognition software. Time Code: 35 minutes 1. Preparation for patient's visit (reviewing previous chart, current medical records, previous history, exam, tests, procedures, and medications) 2. Face to face encounter obtaining history from the patient/family/caregivers; performing evaluation and examination; discussing tests and procedure results, medications and therapeutic options, side effects and complications of medications and procedures. Ordering medications, tests, or procedures; referring and communicating with other physicians, healthcare professionals; counseling and education of the patient/family/caregiver; independently interpreting results (tests, labs, procedures, imaging) and communicating and explaining results to the patient/family/caregiver. 3. Coordination of care; preparing and printing discharge instruction and any educational material for the patient and caregivers. Documenting clinical information in the electronic and other health records. Reviewing OARRS as needed. Orders Placed This Encounter levothyroxine (SYNTHROID, LEVOTHROID) 100 MCG tablet Subjective (CC/HPI): Patient is a 56-year-old lady who came for neurological evaluation. She was referred because of wrist pain. She described an aching wrist pain more on the right wrist than the left intermittently since October 2021. She denies any history of trauma or injury. 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 It was described as aching pain without any radicular symptoms. It would last 2 to 3 days and spontaneously resolved. She has no history of neck pain or radicular symptoms. She denies any numbness or paresthesias. She sometimes notices her hand strength is weak because of the pain. Recently she noted some severe sharp pain on the medial right knee which is better after taking Advil PM. She denies any other joint pains and denies any skin rashes. Past medical history include: Sonja's thyroiditis. Social history: No alcohol, tobacco, recreational drug use. Family history: Positive for Alzheimer's and uterine cancer ROS: All systems reviewed and negative except pertinent positives and negatives documented in the HPI and below. Objective: BP 112/76 (BP Location: Left arm, Patient Position: Sitting, BP Cuff Size: Adult) Pulse 66 Resp 16 Ht 5' 3.5 Wt 83.9 kg (185 lb) SpO2 99% BMI 32.26 kg/m Patient is awake and alert. Neck is supple. Patient is oriented. Attention and comprehension were intact. Speech is fluent and is spontaneous. Language is intact. Follow simple commands. Pupils are 4 mm equally reactive to light. No ptosis, nystagmus, or gaze deviation. Face is symmetrical. Gross strength in the upper and lower extremity were 5/5. Normal muscle tone and bulk. No muscle fasciculations. Gross sensory is intact to pinprick, vibration, light touch, and proprioception. No tremors or abnormal movements. Finger to nose test was normal. Deep tendon reflexes are symmetrical including ankle jerks. No ankle clonus. Gait and station is stable. documented in this encounter [facility] Pain in both wrists- Primary [facility] Diagnosis Pain in both upper extremities- Primary [facility] Encounter for annual routine gynecological examination- [facility] Diagnosis Closed avulsion fracture of lateral malleolus of right fibula with routine healing, subsequent encounter- Primary [facility] Diagnosis Closed avulsion fracture of lateral malleolus of right fibula with routine healing, subsequent encounter- [facility] for [facility]. C/O EXCESSIVE DAYTIME SLEEPINESS X SEVERAL MONTHS modifying factors consists of LAST TSH 2.76 associated symptoms consist of SNORING. WAKES UP GASPING prior treatment consists of medication NONE * PREDIABETES- HGA1C 6.4% COMPARED TO 5.8% * THYROID- STABLE. MED REFILL. RAYNA ORDER US. * COLOGUARD- HAS NOT DONE THE TEST YET, BUT STATES SHE HAS THE KIT AT HOME AND WILL DO. * MAMMO 08/19/20 -[facility] Internal Medicine Work Phone: History of Present illness NarrativePresents today for F/U THYROID UPTAKE SCAN. SHE IS REQUESTING AN ENDO REFERRAL. NO NEW COMPLAINTS -[facility] Medicine Work Phone: History of Present illness Narrative* 56 year old female here to establish care. Was previous patient of [facility]. She has questions today regarding her wrist pain, feels her blood sugar drops throughout the day, and losing weight. * bilateral wrist pain: reports that her pain has been getting worse. She denies any numbness/tingling in her hands/fingers. She reports she has been using essential oils and deejay wraps to her wrists when she gets pain. She reports that her pain shoots up her arm when she is lifting heavy things or moving a certain way. She has not had any EMG studies done in the past. * She is concerned due to her feeling like her blood sugar drops. She reports she will get dizzy and lightheaded throughout the day but as soon as she eats a high protein snack she will feel better. She has no family history of diabetes. Her last HbA1c was 5.6%. She has never checked blood sugars when this happens so she is unsure if she is dropping. * Sonja's Hypothyroid: She has started seeing Dr. Tc Dugan in [place] for endocrinology. She reports she has only met her once and then they ordered lab work which she had done in November and she will follow up with them in May of 2022. They recently increased her thyroid medication to 100 mcg daily and states she feels like it may be helping. She did not mention to them in regards to her blood sugar dropping. * Pap/Mammogram: She reports that she sees [facility] in [place]. States, I have had the same [facility] for years so I just continue to go back to her. * Colon cancer screen: Adan done 08/03/2021 was negative. [facility] 205 DO Work Phone: History of Present illness Narrative* 56 year old female here to establish care. Was previous patient of [facility]. She has questions today regarding her wrist pain, feels her blood sugar drops throughout the day, and difficulty losing weight. * bilateral wrist pain: reports that her pain has been getting worse. She denies any numbness/tingling in her hands/fingers. She reports she has been using essential oils and deejay wraps to her wrists when she gets pain. She reports that her pain shoots up her arm when she is lifting heavy things or moving a certain way. She has not had any EMG studies done in the past. * possible low blood sugar: She is concerned due to her feeling like her blood sugar drops throughoutthe day. She reports she will get dizzy, shaky and lightheaded throughout the day if she hasn't eaten but as soon as she eats a high protein snack she will feel better. She has no family history of di abetes. Her last HbA1c was 5.6%. She has never checked blood sugars when this happens so she is unsure if she is dropping. She has not discussed this with her rug cleaner hand as she reports she has only met her once and got orders for lab work for her thyroid. * Sonja's Hypothyroid: She has started seeing Dr. Tc Dugan in [place] for endocrinology. She reports she has only met her once and then they ordered lab work which she had done in November and she will follow up with them in May of 2022. They recently increased her thyroid medication to 100 mcg daily and states she feels like it may be helping. She did not mention to them in regards to her blood sugar dropping. * Difficulty losing weight: She is down about 7# from last year. She is trying to eat better and is exercising about 3 times a week but feels like she is unable to lose anymore. She is unsure if her inability to lose weight is due to her hormone change with going through menopause. * Pap/Mammogram: She reports that she sees [facility] in [place]. States, I have had the same [facility] for years so I just continue to go back to her. * Colon cancer screen: Adan done 08/03/2021 was negative. -[facility] 205 DO Work Phone: Instructions* Attachments The following attachments cannot be sent through Care Everywhere. * Ankle: Exercises (Tajik) documented in this encounterOhioHealth Summary Purpose Family History No Family History Records FoundUnknown Family Member Name Dates Details Family history of malignant neoplasm of uterus: Mother(V16.49, Z80.49) Status:Active Family history of Alzheimer' s disease: Father(V17.2, Z82.0) Status:Active Unknown Family Member Name Dates Details Family history of malignant neoplasm of uterus: Mother(V16.49, Z80.49) Status:Active Family history of Alzheimer' s disease: Father(V17.2, Z82.0) Status:Active Unknown Family Member Name Dates Details Family history of malignant neoplasm of uterus: Mother(V16.49, Z80.49) Status:Active Family history of Alzheimer' s disease: Father(V17.2, Z82.0) Status:Active Unknown Family Member Name Dates Details Family history of malignant neoplasm of uterus: Mother(V16.49, Z80.49) Status:Active Family history of Alzheimer' s disease: Father(V17.2, Z82.0) Status:Active Unknown Family Member Name Dates Details Family history of malignant neoplasm of uterus: Mother(V16.49, Z80.49) Status:Active Family history of Alzheimer' s disease: Father(V17.2, Z82.0) Status:Active Unknown Family Member Name Dates Details Family history of malignant neoplasm of uterus: Mother(V16.49, Z80.49) Status:Active Family history of Alzheimer' s disease: Father(V17.2, Z82.0) Status:Active Unknown Family Member Name Dates Details Family history of malignant neoplasm of uterus: Mother(V16.49, Z80.49) Status:Active Family history of Alzheimer' s disease: Father(V17.2, Z82.0) Status:Active Advance Directives No Advanced Directives Records FoundNo Advanced Directives Records FoundNo Advanced Directives Records FoundNo Advanced Directives Records FoundNo Advanced Directives Records FoundNo Advanced Directives Records FoundNo Advanced Directives Records FoundNo Advanced Directives Records FoundNo Advanced Directives Records FoundNo Advanced Directives Records Found Assessments Diagnosis Encounter for screening colo noscopy - Primary Chief Complaint 4 MO F/U LABS; C/O NOT SLEEPING WELL AND FATIGUE--DISCUSS THYROID MEDF/U THYROID ULTRASOUND + THYROID UPTAKE SCAN. PATIENT DECIDED NOT TO PURSUE HOME SLEEP STUDY DUE TOCOST OF TESTING.Pt presents to est PCP, previously seen by Madelin Choe. Current c/o occasional bilateral wrist pain on and off for the past couple years. Has tried DEEJAY wrap with little relief.Pt presents to est PCP, previously seen by Madelin Choe. Current c/o occasional bilateral wrist pain on and off for the past couple years. Has tried DEEJAY wrap with little relief. Reason for Referral Specialty Diagnoses / Procedures Referred By Esme cason Referred To Contact Neurology Diagnoses Pain in both wrists Mago Soni, BUSINESS PERFORMANCE SPECIALIST [address] [place] [address] Karel Clark MD [address] [place] [address] [address] Referral ID Status Reason Start Date Expiration Date V isits Requested Visits Authorized [id number] Authorized 01/04/2022 01/04/2023 1 1 Specialty Diagnoses / Procedures Referred By Esme cason Referred To Contact Neurology Diagnoses Pain in both wrists Procedures EMG: Karel Clark MD [address] [address] [facility] [address] [facility] [place] [address] Referral ID Status Reason Start Date Expiration Date V isits Requested Visits Authorized [id number] Authorized 05/06/2022 05/06/2023 1 1 Additional Source Comments INFORMATION SOURCE (unrecogn ized section and content) DATE CREATED AUTHOR AUTHOR'S ORGANIZ ATION 03/04/2018 [facility] DATE CREATED AUTHOR AUTHOR'S ORGANIZ ATION 01/04/2022 [facility] DATE CREATED AUTHOR AUTHOR'S ORGANIZ ATION 03/20/2022 [employer] DATE CREATED AUTHOR AUTHOR'S ORGANIZ ATION 11/20/2022 [facility] DATE CREATED AUTHOR AUTHOR'S ORGANIZ ATION 12/16/2022 [facility] DATE CREATED AUTHOR AUTHOR'S ORGANIZ ATION 12/24/2022 [facility] DATE CREATED AUTHOR AUTHOR'S ORGANIZ ATION 01/16/2023 [facility] DATE CREATED AUTHOR AUTHOR'S ORGANIZ ATION 03/20/2023 [facility] DATE CREATED AUTHOR AUTHOR'S ORGANIZ ATION 06/06/2023 [facility] Care Teams (unrecognized sec tion and content) Choir Leader Relationship Specialty Start Date End Date Taty Dubon MD PCP - General Obstetrics/Gynecology 01/19/18 Choir Leader Relationship Specialty Start Date End Date Taty Dubon MD PCP - General Obstetrics/Gynecology 01/19/18 Choir Leader Relationship Specialty Start Date End Date Mago Soni, JOHNNY [address] [place] [address] PCP - General Nurse Practitioner 08/12/22 Choir Leader Relationship Specialty Start Date End Date Mago Soni CNP [address] [place] [address] PCP - General Nurse Practitioner 02/18/23 Choir Leader Relationship Specialty Start Date End Date Mago Soni CNP [address] [place] [address] PCP - General Nurse Practitioner 02/18/23 Reason for Visit (unrecogniz ed section and content) Specialty Diagnoses / Procedures Referred By Esme cason Referred To Contact Neurology Diagnoses Pain in both wrists Mago Soni CNP [address] [place] [address] Karel Clark MD [address] [place] [address] [place] [address] Referral ID Status Reason Start Date Expiration Date Visits Re quested Visits Authorized [id number] Closed 01/04/2022 01/04/2023 1 1 Reason Comments Annual Exam Reason Comments Foot Injury Right ankle injury, ER f/u Tuesday night Fx. Had xrays done. Reason Comments Follow-up Follow up xray Reason Comments Follow-up Pt is doing good, st ates has been better since last appointment but does have some pain on lateral aspect of ankle. she has been walking more in her boot and taking off the boot to stretch. New xrays today Reason Comments Follow-up 2 week follow up wit h xrays FOR RECORDS PERTAINING TO PATIENTS WHO ARE OR HAVE BEEN ENROLLED IN A CHEMICAL DEPENDENCY/SUBSTANCEABUSE PROGRAM, SOME INFORMATION MAY BE OMITTED. This clinical summary was aggregated from multiple sources. Caution should be exercised in using it in the provision of clinical care. This summary normalizes information from multiple sources, and as a consequence, information in this document may materially change the coding, format and clinical context of patient data. In addition, data may be omitted in some cases. CLINICAL DECISIONS SHOULD BE BASED ON THE PRIMARY CLINICAL RECORDS. [facility] [employer] [facility]. provides no warranty or guarantee of the accuracy or completeness of information in this document.
== END | disposition home or self-care (01) ==
PROVIDERS: Referring Provider Internal Medicine Endocrinology, Diabetes & Metabolism; Visit Provider Internal Medicine Endocrinology, Diabetes & Metabolism
DX: E04.9 Nontoxic goiter, unspecified (principal)
CPT/HCPCS: 76536